=== PATIENT | female | born 1995 | race American Indian/Alaskan Native ===

== ENCOUNTER 2017-02-25 20:35 | Emergency (ER) | payer MEDICAID ==
[2017-02-25 22:29] LABS: Basophils % (Auto) 0.4 % (0.0-1.8); Eosinophils % (Auto) 0.3 % (0.0-4.3); Hematocrit 34.4 % (30.3-42.9); Hemoglobin 11.2 gm/dl (10.1-14.3); Mean Corpuscular HGB Conc 33 % (30-34); Mean Corpuscular Hemoglobin 29 pg (28-32); Mean Corpuscular Volume 89 fl (79-97); Platelet Count 277 K/mm3 (140-440); Red Blood Count 3.88 M/mm3 (3.65-5.03); Red Cell Distribution Width 15.5 % (13.2-15.2); White Blood Count 6.8 K/mm3 (4.5-11.0)
[2017-02-25 22:45] LABS: Alanine Aminotransferase 7 units/L (7-56); Albumin 3.9 g/dL (3.9-5); Albumin/Globulin Ratio 1.2 %; Alkaline Phosphatase 39 units/L (35-129); Anion Gap 20 mmol/L; Blood Urea Nitrogen 10 mg/dL (7-17); Calcium 9.3 mg/dL (8.4-10.2); Carbon Dioxide 22 mmol/L (22-30); Chloride 99.6 mmol/L (98-107); Glucose 75 mg/dL (65-100); Potassium 4.2 mmol/L (3.6-5.0); Sodium 137 mmol/L (137-145); Total Protein 7.2 g/dL (6.3-8.2)
[2017-02-25 22:47] LABS: Bacteria,Urine 1+ /HPF (Negative); Bilirubin,Urine NEG (Negative); Blood,Urine NEG (Negative); Ketones,Urine NEG (Negative); Leukocyte Esterase,Urine LG (Negative); Mucus,Urine 1+ /HPF; Nitrite,Urine NEG (Negative); Protein,Urine <15 mg/dL mg/dL (Negative); Urobilinogen,Urine < 2.0 mg/dL (<2.0)
--- NOTE | 2017-02-26 00:43 | Ultrasound Report ---
FINAL REPORT EXAM: US OB \T\gt; = 14 WEEKS FETUS HISTORY: ABD PAIN COMPARISON: None available. TECHNIQUE: Several real-time grayscale and color Doppler images were obtained. Transabdominal and transvaginal exam. Spectral analysis. FINDINGS: On transvaginal exam, the cervix is closed and measures 3.6 centimeters in length. No evidence of funneling. Placenta is anterior. No placenta previa. Placenta appears to be slightly low lying on this study. On transabdominal exam, an evaluation is performed. Single live IUP. Estimated gestational age 16 weeks 3 days. Estimated delivery date August 09, 2017. heart rate 160 beats per minute. Estimated weight 159 grams. BPD 3.4 centimeter 16 weeks 4 days. Head circumference 12.3 centimeters 16 weeks 1 day. Abdominal circumference 10.6 centimeter 16 weeks 4 days. Femoral length 2.2 centimeters 16 weeks 4 days. position transverse with head to the right. Gross normal amount of amniotic fluid. Placenta location anterior. No placenta previa. Visualized stomach, kidneys, urinary bladder and heart are grossly unremarkable. Spine all 4 chambers of the heart are not well visualized due to positioning. Three-vessel umbilical cord with abdominal insertion. No adnexal masses. IMPRESSION: Single live IUP. Estimated gestational age 16 weeks 3 days. Estimated delivery date August 09, 2017. No abnormality. The cervix is closed and measures 3.6 centimeters in length. Technologist notes no placenta previa placenta. However, the placenta appears to be slightly low lying on submitted images. Followup exam later in gestation suggested to assess positioning of the placenta.
[2017-02-26 04:06] VITALS: BP 110/65
== END 2017-02-25 22:34 | disposition left against medical advice (07) ==
LOC: ED 20:35
DX: O21.8 Other vomiting complicating pregnancy (principal); O26.891 Other specified pregnancy related conditions, first trimester; R10.9 Unspecified abdominal pain; Z53.21 Procedure and treatment not carried out due to patient leaving prior to being seen by health care provider; Z3A.14 14 weeks gestation of pregnancy
CPT/HCPCS: 36415; 76805; 76817; 80053; 81001; 84702; 85025

== ENCOUNTER 2017-04-15 17:38 | Outpatient (CLI) | payer MEDICAID ==
[2017-04-15] MEDS ORDERED: LACTATED RINGERS 500 ML IV ONE (18:16)
[2017-04-15 19:13] VITALS: BP 112/73
[2017-04-15 20:08] LABS: Anion Gap 18 mmol/L; Blood Urea Nitrogen 9 mg/dL (7-17); Carbon Dioxide 21 mmol/L (22-30); Chloride 100.1 mmol/L (98-107); Glucose 73 mg/dL (65-100); Potassium 4.3 mmol/L (3.6-5.0); Sodium 135 mmol/L (137-145)
[2017-04-15 20:52] LABS: Bilirubin,Urine NEG (Negative); Blood,Urine NEG (Negative); Ketones,Urine NEG (Negative); Leukocyte Esterase,Urine MOD (Negative); Mucus,Urine FEW /HPF; Nitrite,Urine NEG (Negative); Protein,Urine <15 mg/dL mg/dL (Negative); Urobilinogen,Urine < 2.0 mg/dL (<2.0)
== END 2017-04-15 21:05 | disposition home or self-care (01) ==
LOC: TRG 17:38
PROVIDERS: ATTEND Obstetrics & Gynecology
DX: Z34.92 Encounter for supervision of normal pregnancy, unspecified, second trimester (principal); Z3A.22 22 weeks gestation of pregnancy
CPT/HCPCS: 36415; 80048; 81001; 96360; 96361; J7120

== ENCOUNTER 2017-04-25 13:50 | Outpatient (CLI) | payer MEDICAID ==
[2017-04-25 14:19] VITALS: BP 94/58
[2017-04-25] MEDS ORDERED: LACTATED RINGERS 500 ML IV ONE (14:24)
[2017-04-25 14:52] LABS: Bacteria,Urine 1+ /HPF (Negative); Bilirubin,Urine NEG (Negative); Blood,Urine NEG (Negative); Ketones,Urine NEG (Negative); Leukocyte Esterase,Urine LG (Negative); Mucus,Urine 2+ /HPF; Nitrite,Urine NEG (Negative); Urobilinogen,Urine < 2.0 mg/dL (<2.0)
[2017-04-25] MEDS ORDERED: ZOFRAN IV ONE (15:00)
[2017-04-25 15:07] LABS: Anion Gap 18 mmol/L; Blood Urea Nitrogen 7 mg/dL (7-17); Calcium 8.2 mg/dL (8.4-10.2); Carbon Dioxide 22 mmol/L (22-30); Chloride 101.4 mmol/L (98-107); Glucose 84 mg/dL (65-100); Potassium 3.9 mmol/L (3.6-5.0); Sodium 137 mmol/L (137-145)
== END 2017-04-25 16:03 | disposition home or self-care (01) ==
LOC: TRG 13:50
PROVIDERS: ATTEND Obstetrics & Gynecology
DX: O47.02 False labor before 37 completed weeks of gestation, second trimester (principal); Z3A.24 24 weeks gestation of pregnancy
CPT/HCPCS: 36415; 59025; 80048; 81001; 96360; 96374; J2405; J7120

== ENCOUNTER 2017-08-08 12:56 | Outpatient (CLI) | payer MEDICAID ==
[2017-08-08 13:26] VITALS: BP 117/81
== END 2017-08-08 14:13 | disposition home or self-care (01) ==
LOC: TRG 12:56
PROVIDERS: ATTEND Obstetrics & Gynecology Gynecology
DX: O47.1 False labor at or after 37 completed weeks of gestation (principal); Z3A.39 39 weeks gestation of pregnancy
CPT/HCPCS: 59025

== ENCOUNTER 2017-08-10 13:34 | Inpatient (IN) | payer BC, MEDICAID ==
[2017-08-10] MEDS ORDERED: PITOCin/NS 20 UNIT/1000ML DRIP 20 UNITS/1,000 ML BAG IV SCH ×2 (16:00→19:00)
[2017-08-10 16:09] LABS: Hemoglobin 11.5 gm/dl (10.1-14.3); Mean Corpuscular HGB Conc 33 % (30-34); Mean Corpuscular Hemoglobin 31 pg (28-32); Mean Corpuscular Volume 94 fl (79-97); Platelet Count 225 K/mm3 (140-440); Red Blood Count 3.73 M/mm3 (3.65-5.03); Red Cell Distribution Width 15.9 % (13.2-15.2); White Blood Count 5.3 K/mm3 (4.5-11.0)
[2017-08-10] MEDS: PITOCin/NS 30 UNIT/500ML 30 UNITS/500 ML BAG IV SCH (16:22)
[2017-08-10] MEDS ORDERED: LACTATED RINGERS 1,000 ML IV SCH (17:00)
[2017-08-10] MEDS ORDERED: BRETHINE SUB-Q PRN (18:11)
[2017-08-10] MEDS ORDERED: MINERAL OIL PO PRN (18:11)
[2017-08-10] MEDS ORDERED: ZOFRAN IV PRN (18:11)
[2017-08-10] MEDS ORDERED: ePHEDrine SULFATE IV PRN (18:11)
[2017-08-10] MEDS ORDERED: SUBLIMAZE IV PRN (18:11)
[2017-08-10] MEDS ORDERED: BRETHINE IVP PRN (18:11)
--- NOTE | 2017-08-10 18:20 | History and Physical Report ---
History of Present Illness Date of examination: 08/10/17 Date of admission: 08/10/17 13:34 Chief complaint: SROM @ 1230 History of present illness: Pt is a 22yo BF EDC 08/13/17; EGA 39 4/7 weeks presents to L&D complaining of SROM clear fluid @ 1230 followed by irregular contractions. She received care at [facility] since 6 weeks and course has been unremarkable except for HSV treated with Valtrex since 36 weeks. records are available and GBS is Negative. 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 Family/Genetic History: none Social history: no significant social history, single - Obstetrical History Expected Date of Delivery: 08/13/17 Actual Gestation: 39 Week(s) 5 Day(s) : 1 Medications and Allergies Allergies Allergy/AdvReac Type Severity Reaction Status Date / Time No Known Allergies Allergy Verified 07/19/15 02:58 Home Medications Medication Instructions Recorded Confirmed Last Taken Type Naproxen [Naprosyn TAB] 500 mg PO BID PRN #20 tablet 07/19/15 08/11/17 Unknown Rx Ferrous Sulfate 325 mg PO DAILY 08/11/17 08/11/17 08/05/17 23:30 History Pnv No.95/Ferrous Fum/Folic AC 1 tab PO DAILY 08/11/17 08/11/17 08/05/17 23:30 History [ Vitamins Tablet] Active Meds: Active Medications Lactated Ringer's (Lactated Ringers) 1,000 mls @ 125 mls/hr IV DIRECT TROY Last Admin: 08/10/17 16:22 Dose: 125 mls/hr Oxytocin/Sodium Chloride (Pitocin/Ns 20 Unit/1000ml Drip) 20 units in 1,000 mls @ 0 mls/hr IV DIRECT TROY PRN Reason: As Directed Oxytocin/Sodium Chloride (Pitocin/Ns 30 Unit/500ml) 30 units in 500 mls @ 2 mls /hr IV TITR TROY PRN Reason: Protocol Last Admin: 08/10/17 16:22 Dose: 2 mls/hr, 2 mls/hr Review of Systems All systems: negative - Vital Signs Vital signs: Vital Signs Temp Pulse Resp BP 98.5 F 129 H 18 122/80 08/10/17 13:56 08/10/17 13:56 08/10/17 13:56 08/10/17 13:56 Temp Pulse Resp BP Pulse Ox 98.5 F 129 H 18 122/80 08/10/17 13:56 08/10/17 13:59 08/10/17 13:56 08/10/17 13:59 - Physical Exam Breasts: Positive: deferred Cardiovascular: Regular rate Lungs: Positive: Clear to auscultation Abdomen: Positive: normal appearance Genitourinary (Female): Positive: normal external genitalia Uterus: Positive: enlarged Extremities: Positive: normal - Obstetrical FHR: category 1 Uterine Contraction Monitor Mode: External Cervical Dilatation: 1 Cervical Effacement Percentage: 20 station: -3 Uterine Contraction Pattern: Irregular Uterine Tone Measurement Phase: Contraction Uterine Contraction Intensity: Mild Results Result Diagrams: 08/10/17 15:18 Abnormal lab results 08/10/17 Range/Units 15:18 RDW 15.9 H (13.2-15.2) % All other labs normal. Assessment and Plan - Patient Problems (1) 39 weeks gestation of Onset Date: 08/10/17 Current Visit: Yes Status: Acute Plan to address problem: A: IUP @ 39 4/7 weeks SROM - clear fluid GBS Negative P: Admit to L&D for pitocin augmentation of labor
[2017-08-10] MEDS ORDERED: PITOCin/NS 30 UNIT/500ML 30 UNITS/500 ML BAG IV SCH (19:00)
[2017-08-10] MEDS ORDERED: XYLOCAINE 2% INFILTRATI ONE (19:00)
[2017-08-11] MEDS: LACTATED RINGERS 1,000 ML IV SCH ×4 (00:01→17:06)
[2017-08-11] MEDS: STADOL IV PRN ×2 (02:40→07:33)
[2017-08-11] MEDS: PITOCin/NS 30 UNIT/500ML 30 UNITS/500 ML BAG IV SCH ×2 (08:19→10:25)
--- NOTE | 2017-08-11 09:39 | Anesthesia Consultation ---
Anesthesia Consult and Med Hx Date of service: 08/11/17 - Airway Anesthetic Teeth Evaluation: Good ROM Head & Neck: Adequate Mental/Hyoid Distance: Adequate Intubation Access Assessment: Probably Good - Pre-Operative Health Status ASA Pre-Surgery Classification: ASA2, Emergency Proposed Anesthetic Plan: Epidural, Spinal - Pulmonary Hx Asthma: No COPD: No Hx Pneumonia: No - Cardiovascular System Hx Hypertension: No - Central Nervous System Hx Seizures: No Hx Psychiatric Problems: No - Endocrine Hx Renal Disease: No Hx End Stage Renal Disease: No Hx Hypothyroidism: No Hx Hyperthyroidism: No - Hematic Hx Anemia: No Hx Sickle Cell Disease: No - Other Systems Hx Alcohol Use: No
--- NOTE | 2017-08-11 09:42 | Progress Note ---
Assessment and Plan - Patient Problems (1) 39 weeks gestation of Onset Date: 08/10/17 Current Visit: Yes Status: Acute Plan to address problem: A: IUP @ 39 5/7 weeks SROM - clear fluid GBS Negative P: Continue with pitocin augmentation of labor Expectant vaginal delivery Subjective - Subjective Date of service: 08/11/17 Principal diagnosis: IUP @ 39 5/7 weeks; SROM Interval history: Pt is a 22yo BF EDC 08/13/17; EGA 39 5/7 weeks presented to L&D complaining of SROM clear fluid @ 1230 followed by irregular contractions. She is currently on pitocin 8mu/min and rufina q 3-4 mins. Patient reports: loss of fluid, movement normal, contractions, no new complaints, no vaginal bleeding Objective - Vital Signs Vital Signs: Vital Signs - 12hr 08/10/17 08/10/17 08/10/17 21:50 22:11 22:41 Temperature Pulse Rate 109 H 100 H 96 H Respiratory Rate Blood Pressure 105/62 114/63 109/70 Blood Pressure [Right] O2 Sat by Pulse Oximetry 08/10/17 08/10/17 08/11/17 23:00 23:39 00:09 Temperature 98.1 F Pulse Rate 96 H 91 H Respiratory Rate Blood Pressure 133/84 143/84 Blood Pressure [Right] O2 Sat by Pulse Oximetry 08/11/17 08/11/17 08/11/17 00:40 01:11 01:21 Temperature Pulse Rate 96 H 95 H 90 Respiratory Rate Blood Pressure 117/64 131/94 128/77 Blood Pressure [Right] O2 Sat by Pulse Oximetry 08/11/17 08/11/17 08/11/17 01:39 02:10 02:12 Temperature Pulse Rate 88 92 H 123 H Respiratory Rate Blood Pressure 117/73 126/68 Blood Pressure [Right] O2 Sat by Pulse 100 Oximetry 08/11/17 08/11/17 08/11/17 02:14 02:17 02:19 Temperature 98.8 F Pulse Rate 97 H 102 H Respiratory Rate Blood Pressure Blood Pressure [Right] O2 Sat by Pulse 93 94 Oximetry 08/11/17 08/11/17 08/11/17 02:22 02:25 02:27 Temperature 98.8 F Pulse Rate 88 85 Respiratory Rate Blood Pressure Blood Pressure [Right] O2 Sat by Pulse 96 95 Oximetry 08/11/17 08/11/17 08/11/17 02:31 02:32 02:37 Temperature Pulse Rate 99 H 92 H 97 H Respiratory Rate Blood Pressure Blood Pressure [Right] O2 Sat by Pulse 94 95 95 Oximetry 08/11/17 08/11/17 08/11/17 02:40 02:42 02:47 Temperature Pulse Rate 92 H 94 H 103 H Respiratory Rate Blood Pressure 117/72 Blood Pressure [Right] O2 Sat by Pulse 94 95 Oximetry 08/11/17 08/11/17 08/11/17 02:52 02:57 03:02 Temperature Pulse Rate 106 H 96 H 89 Respiratory Rate Blood Pressure Blood Pressure [Right] O2 Sat by Pulse 96 96 96 Oximetry 08/11/17 08/11/17 08/11/17 03:07 03:11 03:12 Temperature Pulse Rate 100 H 97 H 91 H Respiratory Rate Blood Pressure 121/76 Blood Pressure [Right] O2 Sat by Pulse 96 98 Oximetry 08/11/17 08/11/17 08/11/17 03:17 03:22 03:27 Temperature Pulse Rate 103 H 90 100 H Respiratory Rate Blood Pressure Blood Pressure [Right] O2 Sat by Pulse 97 98 97 Oximetry 08/11/17 08/11/17 08/11/17 03:32 03:37 03:39 Temperature Pulse Rate 87 94 H 93 H Respiratory Rate Blood Pressure 118/66 Blood Pressure [Right] O2 Sat by Pulse 97 98 Oximetry 08/11/17 08/11/17 08/11/17 03:42 03:47 03:52 Temperature Pulse Rate 94 H 96 H 91 H Respiratory Rate Blood Pressure Blood Pressure [Right] O2 Sat by Pulse 97 98 98 Oximetry 08/11/17 08/11/17 08/11/17 03:57 04:02 04:07 Temperature Pulse Rate 95 H 96 H 91 H Respiratory Rate Blood Pressure Blood Pressure [Right] O2 Sat by Pulse 98 98 99 Oximetry 08/11/17 08/11/17 08/11/17 04:09 04:12 04:17 Temperature Pulse Rate 88 91 H 88 Respiratory Rate Blood Pressure 124/71 Blood Pressure [Right] O2 Sat by Pulse 100 100 Oximetry 08/11/17 08/11/17 08/11/17 04:22 04:24 04:27 Temperature 98.9 F Pulse Rate 95 H 111 H Respiratory 18 Rate Blood Pressure Blood Pressure [Right] O2 Sat by Pulse 100 98 98 Oximetry 08/11/17 08/11/17 08/11/17 04:32 04:37 04:39 Temperature Pulse Rate 113 H 112 H 108 H Respiratory Rate Blood Pressure 120/71 Blood Pressure [Right] O2 Sat by Pulse 97 96 94 Oximetry 08/11/17 08/11/17 08/11/17 04:42 04:44 04:47 Temperature Pulse Rate 100 H 104 H 100 H Respiratory Rate Blood Pressure Blood Pressure [Right] O2 Sat by Pulse 96 94 95 Oximetry 08/11/17 08/11/17 08/11/17 04:50 04:52 04:56 Temperature Pulse Rate 103 H 112 H 107 H Respiratory Rate Blood Pressure Blood Pressure [Right] O2 Sat by Pulse 94 94 94 Oximetry 08/11/17 08/11/17 08/11/17 04:57 05:02 05:07 Temperature Pulse Rate 110 H 115 H 111 H Respiratory Rate Blood Pressure Blood Pressure [Right] O2 Sat by Pulse 94 96 97 Oximetry 08/11/17 08/11/17 08/11/17 05:09 05:16 05:23 Temperature Pulse Rate 120 H 89 71 Respiratory Rate Blood Pressure 109/61 Blood Pressure [Right] O2 Sat by Pulse 0 L 72 L Oximetry 08/11/17 08/11/17 08/11/17 05:28 05:33 05:38 Temperature Pulse Rate 112 H 98 H 103 H Respiratory Rate Blood Pressure Blood Pressure [Right] O2 Sat by Pulse 96 96 96 Oximetry 08/11/17 08/11/17 08/11/17 05:39 05:43 05:48 Temperature Pulse Rate 95 H 92 H 98 H Respiratory Rate Blood Pressure 118/65 Blood Pressure [Right] O2 Sat by Pulse 97 97 Oximetry 08/11/17 08/11/17 08/11/17 05:53 05:58 06:03 Temperature Pulse Rate 110 H 108 H 105 H Respiratory Rate Blood Pressure Blood Pressure [Right] O2 Sat by Pulse 97 97 99 Oximetry 08/11/17 08/11/17 08/11/17 06:08 06:09 06:12 Temperature Pulse Rate 99 H 90 115 H Respiratory Rate Blood Pressure 111/63 Blood Pressure [Right] O2 Sat by Pulse 98 83 L Oximetry 08/11/17 08/11/17 08/11/17 06:13 06:18 06:23 Temperature Pulse Rate 96 H 105 H 103 H Respiratory Rate Blood Pressure Blood Pressure [Right] O2 Sat by Pulse 97 97 98 Oximetry 08/11/17 08/11/17 08/11/17 06:28 06:31 06:33 Temperature Pulse Rate 97 H 105 H 121 H Respiratory Rate Blood Pressure Blood Pressure [Right] O2 Sat by Pulse 96 94 87 Oximetry 08/11/17 08/11/17 08/11/17 06:36 06:38 06:40 Temperature Pulse Rate 109 H 111 H 106 H Respiratory Rate Blood Pressure 131/83 Blood Pressure [Right] O2 Sat by Pulse 94 96 Oximetry 08/11/17 08/11/17 08/11/17 06:43 06:48 06:49 Temperature Pulse Rate 106 H 107 H 117 H Respiratory Rate Blood Pressure Blood Pressure [Right] O2 Sat by Pulse 93 97 87 Oximetry 08/11/17 08/11/17 08/11/17 06:54 07:01 07:06 Temperature Pulse Rate 39 L 82 101 H Respiratory Rate Blood Pressure Blood Pressure [Right] O2 Sat by Pulse 98 91 96 Oximetry 08/11/17 08/11/17 08/11/17 07:08 07:09 07:11 Temperature 98.5 F Pulse Rate 115 H 100 H 112 H Respiratory 18 Rate Blood Pressure 126/75 Blood Pressure 126/75 [Right] O2 Sat by Pulse 97 96 Oximetry 08/11/17 08/11/17 08/11/17 07:16 07:21 07:26 Temperature Pulse Rate 100 H 106 H 106 H Respiratory Rate Blood Pressure Blood Pressure [Right] O2 Sat by Pulse 97 98 98 Oximetry 08/11/17 08/11/17 08/11/17 07:28 07:31 07:33 Temperature Pulse Rate 102 H 102 H Respiratory 18 Rate Blood Pressure Blood Pressure [Right] O2 Sat by Pulse 93 98 Oximetry 08/11/17 08/11/17 08/11/17 07:36 07:40 07:41 Temperature Pulse Rate 94 H 100 H 103 H Respiratory Rate Blood Pressure 116/73 Blood Pressure [Right] O2 Sat by Pulse 98 100 Oximetry 08/11/17 08/11/17 08/11/17 07:44 07:46 07:51 Temperature Pulse Rate 114 H 101 H 107 H Respiratory Rate Blood Pressure Blood Pressure [Right] O2 Sat by Pulse 92 95 96 Oximetry 08/11/17 08/11/17 08/11/17 07:56 08:01 08:02 Temperature Pulse Rate 103 H 98 H 104 H Respiratory Rate Blood Pressure Blood Pressure [Right] O2 Sat by Pulse 97 96 94 Oximetry 08/11/17 08/11/17 08/11/17 08:06 08:09 08:11 Temperature Pulse Rate 98 H 94 H 103 H Respiratory Rate Blood Pressure 116/67 Blood Pressure [Right] O2 Sat by Pulse 94 97 Oximetry 08/11/17 08/11/17 08/11/17 08:13 08:16 08:21 Temperature Pulse Rate 102 H 107 H 117 H Respiratory Rate Blood Pressure Blood Pressure [Right] O2 Sat by Pulse 94 96 96 Oximetry 08/11/17 08/11/17 08/11/17 08:26 08:32 08:33 Temperature Pulse Rate 81 101 H Respiratory Rate Blood Pressure Blood Pressure [Right] O2 Sat by Pulse 82 L 91 94 Oximetry 08/11/17 08/11/17 08/11/17 08:38 08:39 08:43 Temperature Pulse Rate 101 H 112 H 111 H Respiratory Rate Blood Pressure 110/66 Blood Pressure [Right] O2 Sat by Pulse 96 96 Oximetry 08/11/17 08/11/17 08/11/17 08:48 08:53 08:58 Temperature Pulse Rate 111 H 114 H 106 H Respiratory Rate Blood Pressure Blood Pressure [Right] O2 Sat by Pulse 82 L 99 97 Oximetry 08/11/17 08/11/17 08/11/17 09:02 09:03 09:08 Temperature Pulse Rate 110 H 115 H 106 H Respiratory Rate Blood Pressure Blood Pressure [Right] O2 Sat by Pulse 91 99 97 Oximetry 08/11/17 08/11/17 08/11/17 09:10 09:13 09:14 Temperature Pulse Rate 106 H 109 H 104 H Respiratory Rate Blood Pressure 131/85 Blood Pressure [Right] O2 Sat by Pulse 97 93 Oximetry 08/11/17 08/11/17 08/11/17 09:18 09:20 09:23 Temperature 99.3 F Pulse Rate 117 H 111 H 121 H Respiratory 18 Rate Blood Pressure Blood Pressure 131/85 [Right] O2 Sat by Pulse 100 97 79 L Oximetry 08/11/17 08/11/17 08/11/17 09:28 09:31 09:33 Temperature Pulse Rate 132 H 110 H 112 H Respiratory Rate Blood Pressure 123/83 132/90 Blood Pressure [Right] O2 Sat by Pulse 97 98 Oximetry 08/11/17 08/11/17 08/11/17 09:35 09:37 09:38 Temperature Pulse Rate 98 H 104 H 91 H Respiratory Rate Blood Pressure 117/66 110/72 Blood Pressure [Right] O2 Sat by Pulse 100 Oximetry 08/11/17 08/11/17 08/11/17 09:39 09:41 09:43 Temperature Pulse Rate 95 H 94 H 105 H Respiratory Rate Blood Pressure 111/69 121/72 116/72 Blood Pressure [Right] O2 Sat by Pulse 100 Oximetry - Exam Abdomen: Present: normal appearance, soft Uterus: Present: normal FHR: category 1 Uterine Contraction Monitor Mode: External Cervical Dilatation: 2 (per nurse) Cervical Effacement Percentage: 80 (per nurse) station: 0 Uterine Contraction Pattern: Regular Uterine Tone Measurement Phase: Contraction Uterine Contraction Intensity: Moderate - Labs Labs: Abnormal Labs 08/10/17 15:18 RDW 15.9 H Laboratory Results - last 24 hr 08/10/17 08/10/17 15:18 15:18 WBC 5.3 RBC 3.73 Hgb 11.5 Hct 35.0 MCV 94 MCH 31 MCHC 33 RDW 15.9 H Plt Count 225 Blood Type A POSITIVE Antibody Screen Negative
[2017-08-11] MEDS ORDERED: NARCAN 2 MG/2 ML IV PRN (10:00)
[2017-08-11] MEDS: fentaNYL-BUPIV 2 MCG/ML-0.125% 200 MCG/100 ML BAG EPIDURAL SCH ×10 (10:18→22:04)
--- NOTE | 2017-08-11 17:23 | Progress Note ---
Assessment and Plan - Patient Problems (1) 39 weeks gestation of Onset Date: 08/10/17 Current Visit: Yes Status: Acute Plan to address problem: A: IUP @ 39 5/7 weeks SROM - clear fluid GBS Negative P: Continue with pitocin augmentation of labor Expectant vaginal delivery Subjective - Subjective Date of service: 08/11/17 Principal diagnosis: IUP @ 39 5/7 weeks; SROM Interval history: Pt is a 22yo BF EDC 08/13/17; EGA 39 5/7 weeks presented to L&D complaining of SROM clear fluid @ 1230 followed by irregular contractions. She is currently on pitocin 10mu/min and rufina q 3-4 mins with epidural in place. Patient reports: loss of fluid, movement normal, contractions, no new complaints, no vaginal bleeding Objective - Vital Signs Vital Signs: Vital Signs - 12hr 08/11/17 08/11/17 08/11/17 05:28 05:33 05:38 Temperature Pulse Rate 112 H 98 H 103 H Respiratory Rate Blood Pressure Blood Pressure [Right] O2 Sat by Pulse 96 96 96 Oximetry 08/11/17 08/11/17 08/11/17 05:39 05:43 05:48 Temperature Pulse Rate 95 H 92 H 98 H Respiratory Rate Blood Pressure 118/65 Blood Pressure [Right] O2 Sat by Pulse 97 97 Oximetry 08/11/17 08/11/17 08/11/17 05:53 05:58 06:03 Temperature Pulse Rate 110 H 108 H 105 H Respiratory Rate Blood Pressure Blood Pressure [Right] O2 Sat by Pulse 97 97 99 Oximetry 08/11/17 08/11/17 08/11/17 06:08 06:09 06:12 Temperature Pulse Rate 99 H 90 115 H Respiratory Rate Blood Pressure 111/63 Blood Pressure [Right] O2 Sat by Pulse 98 83 L Oximetry 08/11/17 08/11/17 08/11/17 06:13 06:18 06:23 Temperature Pulse Rate 96 H 105 H 103 H Respiratory Rate Blood Pressure Blood Pressure [Right] O2 Sat by Pulse 97 97 98 Oximetry 08/11/17 08/11/17 08/11/17 06:28 06:31 06:33 Temperature Pulse Rate 97 H 105 H 121 H Respiratory Rate Blood Pressure Blood Pressure [Right] O2 Sat by Pulse 96 94 87 Oximetry 08/11/17 08/11/17 08/11/17 06:36 06:38 06:40 Temperature Pulse Rate 109 H 111 H 106 H Respiratory Rate Blood Pressure 131/83 Blood Pressure [Right] O2 Sat by Pulse 94 96 Oximetry 08/11/17 08/11/17 08/11/17 06:43 06:48 06:49 Temperature Pulse Rate 106 H 107 H 117 H Respiratory Rate Blood Pressure Blood Pressure [Right] O2 Sat by Pulse 93 97 87 Oximetry 08/11/17 08/11/17 08/11/17 06:54 07:01 07:06 Temperature Pulse Rate 39 L 82 101 H Respiratory Rate Blood Pressure Blood Pressure [Right] O2 Sat by Pulse 98 91 96 Oximetry 08/11/17 08/11/17 08/11/17 07:08 07:09 07:11 Temperature 98.5 F Pulse Rate 115 H 100 H 112 H Respiratory 18 Rate Blood Pressure 126/75 Blood Pressure 126/75 [Right] O2 Sat by Pulse 97 96 Oximetry 08/11/17 08/11/17 08/11/17 07:16 07:21 07:26 Temperature Pulse Rate 100 H 106 H 106 H Respiratory Rate Blood Pressure Blood Pressure [Right] O2 Sat by Pulse 97 98 98 Oximetry 08/11/17 08/11/17 08/11/17 07:28 07:31 07:33 Temperature Pulse Rate 102 H 102 H Respiratory 18 Rate Blood Pressure Blood Pressure [Right] O2 Sat by Pulse 93 98 Oximetry 08/11/17 08/11/17 08/11/17 07:36 07:40 07:41 Temperature Pulse Rate 94 H 100 H 103 H Respiratory Rate Blood Pressure 116/73 Blood Pressure [Right] O2 Sat by Pulse 98 100 Oximetry 08/11/17 08/11/17 08/11/17 07:44 07:46 07:51 Temperature Pulse Rate 114 H 101 H 107 H Respiratory Rate Blood Pressure Blood Pressure [Right] O2 Sat by Pulse 92 95 96 Oximetry 08/11/17 08/11/17 08/11/17 07:56 08:01 08:02 Temperature Pulse Rate 103 H 98 H 104 H Respiratory Rate Blood Pressure Blood Pressure [Right] O2 Sat by Pulse 97 96 94 Oximetry 08/11/17 08/11/17 08/11/17 08:06 08:09 08:11 Temperature Pulse Rate 98 H 94 H 103 H Respiratory Rate Blood Pressure 116/67 Blood Pressure [Right] O2 Sat by Pulse 94 97 Oximetry 08/11/17 08/11/17 08/11/17 08:13 08:16 08:21 Temperature Pulse Rate 102 H 107 H 117 H Respiratory Rate Blood Pressure Blood Pressure [Right] O2 Sat by Pulse 94 96 96 Oximetry 08/11/17 08/11/17 08/11/17 08:26 08:32 08:33 Temperature Pulse Rate 81 101 H Respiratory Rate Blood Pressure Blood Pressure [Right] O2 Sat by Pulse 82 L 91 94 Oximetry 08/11/17 08/11/17 08/11/17 08:38 08:39 08:43 Temperature Pulse Rate 101 H 112 H 111 H Respiratory Rate Blood Pressure 110/66 Blood Pressure [Right] O2 Sat by Pulse 96 96 Oximetry 08/11/17 08/11/17 08/11/17 08:48 08:53 08:58 Temperature Pulse Rate 111 H 114 H 106 H Respiratory Rate Blood Pressure Blood Pressure [Right] O2 Sat by Pulse 82 L 99 97 Oximetry 08/11/17 08/11/17 08/11/17 09:02 09:03 09:08 Temperature Pulse Rate 110 H 115 H 106 H Respiratory Rate Blood Pressure Blood Pressure [Right] O2 Sat by Pulse 91 99 97 Oximetry 08/11/17 08/11/17 08/11/17 09:10 09:13 09:14 Temperature Pulse Rate 106 H 109 H 104 H Respiratory Rate Blood Pressure 131/85 Blood Pressure [Right] O2 Sat by Pulse 97 93 Oximetry 08/11/17 08/11/17 08/11/17 09:18 09:20 09:23 Temperature 99.3 F Pulse Rate 117 H 111 H 121 H Respiratory 18 Rate Blood Pressure Blood Pressure 131/85 [Right] O2 Sat by Pulse 100 97 79 L Oximetry 08/11/17 08/11/17 08/11/17 09:28 09:31 09:33 Temperature Pulse Rate 132 H 110 H 112 H Respiratory Rate Blood Pressure 123/83 132/90 Blood Pressure [Right] O2 Sat by Pulse 97 98 Oximetry 08/11/17 08/11/17 08/11/17 09:35 09:37 09:38 Temperature Pulse Rate 98 H 104 H 91 H Respiratory Rate Blood Pressure 117/66 110/72 Blood Pressure [Right] O2 Sat by Pulse 100 Oximetry 08/11/17 08/11/17 08/11/17 09:39 09:41 09:43 Temperature Pulse Rate 95 H 94 H 105 H Respiratory Rate Blood Pressure 111/69 121/72 116/72 Blood Pressure [Right] O2 Sat by Pulse 100 Oximetry 08/11/17 08/11/17 08/11/17 09:45 09:47 09:48 Temperature Pulse Rate 100 H 111 H 96 H Respiratory Rate Blood Pressure 120/80 114/75 Blood Pressure [Right] O2 Sat by Pulse 100 Oximetry 08/11/17 08/11/17 08/11/17 09:49 09:53 09:55 Temperature Pulse Rate 100 H 121 H 106 H Respiratory Rate Blood Pressure 115/75 100/66 Blood Pressure [Right] O2 Sat by Pulse 96 Oximetry 08/11/17 08/11/17 08/11/17 09:58 09:59 10:03 Temperature Pulse Rate 110 H 99 H 103 H Respiratory Rate Blood Pressure 119/74 Blood Pressure [Right] O2 Sat by Pulse 98 100 Oximetry 08/11/17 08/11/17 08/11/17 10:05 10:08 10:09 Temperature Pulse Rate 94 H 111 H 94 H Respiratory Rate Blood Pressure 131/73 128/80 Blood Pressure [Right] O2 Sat by Pulse 100 Oximetry 08/11/17 08/11/17 08/11/17 10:13 10:15 10:18 Temperature Pulse Rate 96 H 103 H 109 H Respiratory Rate Blood Pressure 120/81 Blood Pressure [Right] O2 Sat by Pulse 100 100 Oximetry 08/11/17 08/11/17 08/11/17 10:20 10:23 10:25 Temperature Pulse Rate 94 H 94 H 107 H Respiratory Rate Blood Pressure 131/88 129/93 Blood Pressure [Right] O2 Sat by Pulse 100 Oximetry 08/11/17 08/11/17 08/11/17 10:28 10:29 10:33 Temperature Pulse Rate 102 H 109 H 98 H Respiratory Rate Blood Pressure 119/82 Blood Pressure [Right] O2 Sat by Pulse 100 100 Oximetry 08/11/17 08/11/17 08/11/17 10:35 10:38 10:39 Temperature Pulse Rate 96 H 107 H 96 H Respiratory Rate Blood Pressure 137/92 132/87 Blood Pressure [Right] O2 Sat by Pulse 100 Oximetry 08/11/17 08/11/17 08/11/17 10:43 10:45 10:48 Temperature Pulse Rate 99 H 84 92 H Respiratory Rate Blood Pressure 140/90 Blood Pressure [Right] O2 Sat by Pulse 100 100 Oximetry 08/11/17 08/11/17 08/11/17 10:50 10:53 10:54 Temperature Pulse Rate 101 H 97 H 105 H Respiratory Rate Blood Pressure 121/76 118/78 Blood Pressure [Right] O2 Sat by Pulse 100 Oximetry 08/11/17 08/11/17 08/11/17 10:58 10:59 11:03 Temperature Pulse Rate 97 H 99 H 92 H Respiratory Rate Blood Pressure 126/83 Blood Pressure [Right] O2 Sat by Pulse 100 100 Oximetry 08/11/17 08/11/17 08/11/17 11:04 11:08 11:10 Temperature Pulse Rate 102 H 96 H 86 Respiratory Rate Blood Pressure 129/86 140/96 Blood Pressure [Right] O2 Sat by Pulse 100 Oximetry 08/11/17 08/11/17 08/11/17 11:13 11:15 11:16 Temperature Pulse Rate 104 H 101 H 97 H Respiratory Rate Blood Pressure 140/98 Blood Pressure [Right] O2 Sat by Pulse 100 92 Oximetry 08/11/17 08/11/17 08/11/17 11:18 11:20 11:21 Temperature Pulse Rate 100 H 98 H 106 H Respiratory Rate Blood Pressure 141/99 Blood Pressure [Right] O2 Sat by Pulse 100 84 Oximetry 08/11/17 08/11/17 08/11/17 11:23 11:25 11:26 Temperature Pulse Rate 105 H 100 H Respiratory Rate Blood Pressure 139/97 Blood Pressure [Right] O2 Sat by Pulse 87 78 L Oximetry 08/11/17 08/11/17 08/11/17 11:28 11:29 11:32 Temperature Pulse Rate 51 L 105 H Respiratory Rate Blood Pressure 119/90 Blood Pressure [Right] O2 Sat by Pulse 80 L 91 Oximetry 08/11/17 08/11/17 08/11/17 11:35 11:36 11:38 Temperature Pulse Rate 111 H 63 Respiratory Rate Blood Pressure 122/85 Blood Pressure [Right] O2 Sat by Pulse 80 L 79 L Oximetry 08/11/17 08/11/17 08/11/17 11:39 11:41 11:43 Temperature Pulse Rate 111 H 41 L 61 Respiratory Rate Blood Pressure 127/86 Blood Pressure [Right] O2 Sat by Pulse 78 L 77 L Oximetry 08/11/17 08/11/17 08/11/17 11:46 11:50 11:51 Temperature Pulse Rate 89 114 H 90 Respiratory Rate Blood Pressure 147/101 133/94 Blood Pressure [Right] O2 Sat by Pulse 85 99 Oximetry 08/11/17 08/11/17 08/11/17 11:55 11:56 12:00 Temperature Pulse Rate 88 86 90 Respiratory Rate Blood Pressure 144/101 152/98 Blood Pressure [Right] O2 Sat by Pulse 97 Oximetry 08/11/17 08/11/17 08/11/17 12:01 12:05 12:06 Temperature 98.5 F Pulse Rate 90 89 88 Respiratory 18 Rate Blood Pressure 130/89 Blood Pressure 135/93 [Right] O2 Sat by Pulse 97 99 Oximetry 08/11/17 08/11/17 08/11/17 12:10 12:11 12:14 Temperature Pulse Rate 89 90 104 H Respiratory Rate Blood Pressure 135/93 147/98 Blood Pressure [Right] O2 Sat by Pulse 99 Oximetry 08/11/17 08/11/17 08/11/17 12:15 12:16 12:19 Temperature Pulse Rate 96 H 91 H 86 Respiratory Rate Blood Pressure 141/94 Blood Pressure [Right] O2 Sat by Pulse 92 99 Oximetry 08/11/17 08/11/17 08/11/17 12:21 12:26 12:31 Temperature Pulse Rate 93 H 91 H 85 Respiratory Rate Blood Pressure Blood Pressure [Right] O2 Sat by Pulse 99 97 97 Oximetry 08/11/17 08/11/17 08/11/17 12:35 12:36 12:41 Temperature Pulse Rate 88 86 85 Respiratory Rate Blood Pressure 134/88 Blood Pressure [Right] O2 Sat by Pulse 98 96 Oximetry 08/11/17 08/11/17 08/11/17 12:46 12:48 12:50 Temperature Pulse Rate 94 H 111 H 89 Respiratory Rate Blood Pressure 135/90 Blood Pressure [Right] O2 Sat by Pulse 98 93 Oximetry 08/11/17 08/11/17 08/11/17 12:51 12:56 13:01 Temperature Pulse Rate 94 H 86 94 H Respiratory Rate Blood Pressure Blood Pressure [Right] O2 Sat by Pulse 98 98 98 Oximetry 08/11/17 08/11/1717 13:04 13:05 13:06 Temperature Pulse Rate 102 H 91 H 94 H Respiratory Rate Blood Pressure 135/91 Blood Pressure [Right] O2 Sat by Pulse 94 98 Oximetry 08/11/17 08/11/17 08/11/17 13:11 13:16 13:20 Temperature Pulse Rate 99 H 91 H 92 H Respiratory Rate Blood Pressure 136/92 Blood Pressure [Right] O2 Sat by Pulse 98 97 Oximetry 08/11/17 08/11/17 08/11/17 13:21 13:26 13:31 Temperature Pulse Rate 99 H 84 87 Respiratory Rate Blood Pressure Blood Pressure [Right] O2 Sat by Pulse 97 97 97 Oximetry 08/11/17 08/11/17 08/11/17 13:35 13:36 13:41 Temperature Pulse Rate 100 H 111 H 91 H Respiratory Rate Blood Pressure 131/91 Blood Pressure [Right] O2 Sat by Pulse 97 97 Oximetry 08/11/17 08/11/17 08/11/17 13:46 13:49 13:51 Temperature Pulse Rate 92 H 102 H 91 H Respiratory Rate Blood Pressure 127/94 Blood Pressure [Right] O2 Sat by Pulse 97 97 Oximetry 08/11/17 08/11/17 08/11/17 13:56 14:01 14:04 Temperature Pulse Rate 97 H 129 H 104 H Respiratory Rate Blood Pressure 131/95 Blood Pressure [Right] O2 Sat by Pulse 99 100 Oximetry 08/11/17 08/11/17 08/11/17 14:06 14:11 14:16 Temperature Pulse Rate 91 H 97 H 92 H Respiratory Rate Blood Pressure Blood Pressure [Right] O2 Sat by Pulse 100 100 98 Oximetry 08/11/17 08/11/17 08/11/17 14:19 14:21 14:26 Temperature Pulse Rate 92 H 93 H 95 H Respiratory Rate Blood Pressure 134/93 Blood Pressure [Right] O2 Sat by Pulse 100 100 Oximetry 08/11/17 08/11/17 08/11/17 14:31 14:34 14:36 Temperature Pulse Rate 98 H 98 H 99 H Respiratory Rate Blood Pressure 138/98 Blood Pressure [Right] O2 Sat by Pulse 100 100 Oximetry 08/11/17 08/11/17 08/11/17 14:38 14:41 14:46 Temperature Pulse Rate 87 110 H 102 H Respiratory Rate Blood Pressure Blood Pressure [Right] O2 Sat by Pulse 93 100 100 Oximetry 08/11/17 08/11/17 08/11/17 14:49 14:51 14:56 Temperature Pulse Rate 121 H 101 H 111 H Respiratory Rate Blood Pressure 136/97 Blood Pressure [Right] O2 Sat by Pulse 100 100 Oximetry 08/11/17 08/11/17 08/11/17 15:01 15:06 15:11 Temperature Pulse Rate 101 H 110 H 105 H Respiratory Rate Blood Pressure 145/100 Blood Pressure [Right] O2 Sat by Pulse 99 88 99 Oximetry 08/11/17 08/11/17 08/11/17 15:16 15:20 15:21 Temperature Pulse Rate 111 H 97 H 108 H Respiratory Rate Blood Pressure 146/95 Blood Pressure [Right] O2 Sat by Pulse 99 100 Oximetry 08/11/17 08/11/17 08/11/17 15:26 15:31 15:36 Temperature Pulse Rate 110 H 105 H 100 H Respiratory Rate Blood Pressure 136/96 Blood Pressure [Right] O2 Sat by Pulse 100 98 Oximetry 08/11/17 08/11/17 08/11/17 15:37 15:41 15:42 Temperature Pulse Rate 42 L 101 H Respiratory Rate Blood Pressure Blood Pressure [Right] O2 Sat by Pulse 97 88 77 L Oximetry 08/11/17 08/11/17 08/11/17 15:47 15:50 15:52 Temperature Pulse Rate 113 H 103 H 101 H Respiratory Rate Blood Pressure 141/95 Blood Pressure [Right] O2 Sat by Pulse 86 95 Oximetry 08/11/17 08/11/17 08/11/17 15:57 16:02 16:04 Temperature Pulse Rate 106 H 115 H 104 H Respiratory Rate Blood Pressure Blood Pressure [Right] O2 Sat by Pulse 97 98 94 Oximetry 08/11/17 08/11/17 08/11/17 16:05 16:07 16:12 Temperature Pulse Rate 108 H 111 H 116 H Respiratory Rate Blood Pressure 137/91 Blood Pressure [Right] O2 Sat by Pulse 98 99 Oximetry 08/11/17 08/11/17 08/11/17 16:17 16:19 16:20 Temperature Pulse Rate 107 H 110 H 107 H Respiratory Rate Blood Pressure 137/90 Blood Pressure [Right] O2 Sat by Pulse 100 73 L Oximetry 08/11/17 08/11/17 08/11/17 16:22 16:25 16:27 Temperature Pulse Rate 101 H 119 H 122 H Respiratory Rate Blood Pressure Blood Pressure [Right] O2 Sat by Pulse 76 L 85 100 Oximetry 08/11/17 08/11/17 08/11/17 16:32 16:34 16:35 Temperature Pulse Rate 113 H 74 102 H Respiratory 18 Rate Blood Pressure 143/98 Blood Pressure 143/98 [Right] O2 Sat by Pulse 100 100 Oximetry 08/11/17 08/11/17 08/11/17 16:36 16:37 16:41 Temperature Pulse Rate 83 111 H Respiratory Rate Blood Pressure Blood Pressure [Right] O2 Sat by Pulse 89 84 76 L Oximetry 08/11/17 08/11/17 08/11/17 16:42 16:47 16:49 Temperature Pulse Rate 70 99 H 105 H Respiratory Rate Blood Pressure 133/89 Blood Pressure [Right] O2 Sat by Pulse 97 100 88 Oximetry 08/11/17 08/11/17 08/11/17 16:52 16:57 17:00 Temperature Pulse Rate 131 H 109 H 94 H Respiratory Rate Blood Pressure Blood Pressure [Right] O2 Sat by Pulse 95 97 33 L Oximetry 08/11/17 08/11/17 08/11/17 17:02 17:05 17:07 Temperature Pulse Rate 112 H 112 H 107 H Respiratory Rate Blood Pressure 134/91 Blood Pressure [Right] O2 Sat by Pulse 91 100 Oximetry 08/11/17 08/11/17 08/11/17 17:12 17:17 17:20 Temperature Pulse Rate 105 H 115 H 108 H Respiratory Rate Blood Pressure 136/91 Blood Pressure [Right] O2 Sat by Pulse 100 100 Oximetry 08/11/17 08/11/17 17:22 17:23 Temperature Pulse Rate 124 H 117 H Respiratory Rate Blood Pressure Blood Pressure [Right] O2 Sat by Pulse 100 77 L Oximetry - Exam Uterus: Present: normal FHR: category 1 Uterine Contraction Monitor Mode: External Cervical Dilatation: 6 Cervical Effacement Percentage: 80 station: 0 Uterine Contraction Pattern: Regular Uterine Tone Measurement Phase: Contraction Uterine Contraction Intensity: Moderate Extremities: normal - Labs Labs: Abnormal Labs 08/10/17 15:18 RDW 15.9 H Laboratory Results - last 24 hr 08/10/17 08/10/17 15:18 15:18 RPR Nonreactive Blood Type A POSITIVE Antibody Screen Negative
[2017-08-11] MEDS ORDERED: XYLOCAINE MPF 2% ONE (19:32)
[2017-08-11] MEDS ORDERED: TYLENOL PO ONE (20:00)
[2017-08-11] MEDS ORDERED: POLYCILLIN/NS 2 GM/100 ML 2 GM/100 ML BAG IV ONE (21:00)
[2017-08-12] MEDS ORDERED: POLYCILLIN/NS 1 GM/50 ML 1 GM/50 ML BAG IV SCH ×2
[2017-08-12] MEDS ORDERED: XYLOCAINE MPF 2% ONE (00:04)
--- NOTE | 2017-08-12 03:08 | Procedure Note ---
OB Delivery Note - Delivery Date of Delivery: 08/12/17 Surgeon: YAYA GAONA Estimated blood loss: 200cc - Vaginal Delivery presentation: vertex Delivery position: OA Intrapartum events: febrile- temp >100.3, PROM->1hr before delivery, prolonged labor- > = 20hr Delivery induction: oxytocin Delivery augmentation: pitocin Delivery monitor: external FHT, external uterine Route of delivery: Delivery placenta: spontaneous Delivery cord: 3 umbilical vessels Episiotomy: none Delivery laceration: none Anesthesia: epidural Delivery comments: Infant delivered OA and placed on Mom's chest for [id number] bonding and delayed cord clamping. - Infant A at 1 minute: 8 at 5 minutes: 9 Gender: Male ([id number])
[2017-08-12] MEDS ORDERED: MILK OF MAGNESIA PO PRN (03:13)
[2017-08-12] MEDS ORDERED: PHENERGAN PR PRN (03:13)
[2017-08-12] MEDS ORDERED: TUCKS PAD TP PRN (03:13)
[2017-08-12] MEDS ORDERED: ZOFRAN IV PRN (03:13)
[2017-08-12] MEDS ORDERED: TYLENOL PO PRN (03:13)
[2017-08-12] MEDS ORDERED: DULCOLAX PR PRN (03:13)
[2017-08-12] MEDS ORDERED: BENADRYL PO PRN (03:13)
[2017-08-12] MEDS ORDERED: PHENERGAN PO PRN (03:13)
[2017-08-12] MEDS ORDERED: PITOCin/NS 20 UNIT/1000ML DRIP 20 UNITS/1,000 ML BAG IV SCH (04:00)
[2017-08-12] MEDS ORDERED: SODIUM CHLORIDE FLUSH SYRINGE 10 ML IV PRN (04:00)
[2017-08-12] MEDS: SENOKOT S PO SCH ×2 (04:00→21:45)
[2017-08-12] MEDS: MOTRIN PO SCH ×5 (04:00→23:13)
[2017-08-12] MEDS: COLACE PO SCH ×2 (12:58→21:41)
[2017-08-12] MEDS: PRENATAL VITAMIN PO SCH (12:58)
[2017-08-12] MEDS: FEOSOL PO SCH ×2 (12:58→21:41)
[2017-08-12 16:01] LABS: Hematocrit 31.6 % (30.3-42.9); Hemoglobin 10.2 gm/dl (10.1-14.3)
[2017-08-12] MEDS: NORCO 5/325 PO PRN (23:13)
[2017-08-13] MEDS ORDERED: M-M-R II VACCINE SUB-Q ONE (03:13)
[2017-08-13] MEDS: MOTRIN PO SCH ×4 (05:17→23:25)
[2017-08-13] MEDS ORDERED: BOOSTRIX IM ONE (06:00)
--- NOTE | 2017-08-13 08:13 | Progress Note ---
Assessment and Plan PPD#1 s/p -Doing well P: -Continue routine care -Anticipate discharge in 24-48 hours - Patient Problems (1) (normal spontaneous vaginal delivery) Current Visit: Yes Status: Acute Subjective - Subjective Date of service: 08/13/17 Principal diagnosis: PPD#1 Interval history: Patient seen and examined stable doing well, no issues Patient reports: appetite normal, voiding normally, pain well controlled, flatus , ambulating normally, no dizzy ambulation, no nauseated : doing well Objective - Vital Signs Latest vital signs: Vital Signs Temp Pulse Resp BP BP Pulse Ox 08/13/17 00:30 98.6 F 71 112/68 08/12/17 20:00 98.6 F 66 16 117/77 08/12/17 16:42 97.9 F 22 109/78 08/12/17 16:41 98.6 F 101 H 20 109/78 08/12/17 11:19 98.2 F 92 H 18 121/86 100 08/12/17 11:00 121/86 08/12/17 08:54 98.1 F 74 18 140/95 100 Intake and Output 08/12/17 08/13/17 08/13/17 23:59 07:59 15:59 Intake Total 540 200 Balance 540 200 Intake: Oral 240 200 Intake, Free Water 300 Other: Total, Intake Amount 240 200 # Voids Void 1 - Exam Abdomen: Present: normal appearance, soft. Absent: distention, tenderness, guarding, rigidity Uterus: Present: firm, fundal height below umbilicus Extremities: Present: normal
--- NOTE | 2017-08-13 08:14 | Discharge Summary ---
Providers - Providers Date of Admission: 08/10/17 13:34 Date of discharge: 08/14/17 Attending physician: YAYA GAONA Primary care physician: YAYA GAONA Hospitalization Reason for admission: active labor, IUP at term Delivery: Episiotomy: none Laceration: none Other procedures: none complications: none Discharge diagnosis: IUP at term delivered [place] baby: male Hospital course: Uncomplicated hospital course Condition at discharge: Good Disposition: DC-01 TO HOME OR SELFCARE - Discharge Diagnoses (1) (normal spontaneous vaginal delivery) Status: Acute Plan - Provider Discharge Summary Activity: no sex for 6 weeks, no heavy lifting 4 weeks, no strenuous exercise Diet: routine Additional instructions: [] Smoking cessation referral if applicable(refer to patient education folder for contact #) [] Refer to [facility] Booklet Call your doctor immediately for: * Fever > 100.5 * Heavy vaginal bleeding ( >1 pad per hour) * Severe persistent headache * Shortness of breath * Reddened, hot, painful area to leg or breast * Drainage or odor from incision. * Keep incision clean and dry at all times and follow doctor's instructions regarding bathing/showering - Follow up plan Follow up: YAYA GAONA MD [Primary Care Provider] - 6 Weeks
[2017-08-13] MEDS: PRENATAL VITAMIN PO SCH (12:28)
[2017-08-13] MEDS: FEOSOL PO SCH ×2 (12:28→23:25)
[2017-08-13] MEDS: NORCO 5/325 PO PRN (23:25)
[2017-08-13] MEDS: COLACE PO SCH (23:27)
[2017-08-13] MEDS: SENOKOT S PO SCH (23:28)
[2017-08-14] MEDS: MOTRIN PO SCH ×2 (05:59→11:02)
[2017-08-14] MEDS: NORCO 5/325 PO PRN (05:59)
[2017-08-14] MEDS ORDERED: M-M-R II VACCINE SUB-Q ONE (10:38)
[2017-08-14] MEDS: SENOKOT S PO SCH (11:01)
[2017-08-14] MEDS: FEOSOL PO SCH (11:02)
[2017-08-14] MEDS: PRENATAL VITAMIN PO SCH (11:02)
[2017-08-14 11:43] VITALS: BP 125/84
== END 2017-08-14 11:28 | disposition home or self-care (01) | DRG 775 ==
LOC: LD 13:34 → OB 08-12 04:50
PROVIDERS: ADMIT Obstetrics & Gynecology; ATTEND Obstetrics & Gynecology
PROC: 10E0XZZ Delivery of Products of Conception, External Approach (ICD-10-PCS; principal; 2017-08-12)
PROC: 3E033VJ Introduction of Other Hormone into Peripheral Vein, Percutaneous Approach (ICD-10-PCS; 2017-08-12)
PROC: 3E0R3BZ Introduction of Anesthetic Agent into Spinal Canal, Percutaneous Approach (ICD-10-PCS; 2017-08-12)
PROC: 00HU33Z Insertion of Infusion Device into Spinal Canal, Percutaneous Approach (ICD-10-PCS; 2017-08-12)
PROC: 3E0234Z Introduction of Serum, Toxoid and Vaccine into Muscle, Percutaneous Approach (ICD-10-PCS; 2017-08-13)
DX: O42.02 Full-term premature rupture of membranes, onset of labor within 24 hours of rupture (principal); O63.9 Long labor, unspecified; Z3A.39 39 weeks gestation of pregnancy; Z37.0 Single live birth; Z23 Encounter for immunization
CPT/HCPCS: 36415; 85014; 85018; 85027; 86592; 86850; 86900; 86901; 90707; 99211; G0463; J0290; J0595; J2590; J7120